=== PATIENT | male | born 1990 | race Caucasian/White ===

== ENCOUNTER 2024-09-10 13:25 | Emergency (ER) | payer OTHER, SELFPAY ==
[2024-09-10 13:31] VITALS: BP 122/92
--- NOTE | 2024-09-10 13:33 | ED.SKININJ ---
Addendum entered and electronically signed by Alexis Reis DO 09/27/24 15:16:
Laceration note.
1 cm scalp laceration closed with dermabond
Original Note:
HPI-Injury
<Rohan Bonilla PA-C - Last Filed: 09/11/24 06:58>
General
Chief Complaint: Head Injury
Time Seen by Provider: 09/10/24 14:23
<Alexis Reis DO - Last Filed: 09/10/24 14:55>
General
Source: patient
History of Present Illness-Injury
Initial Injury comments:
33-year-old male presents to the emergency room complaining of striking his head. Patient states he bent over to pull a stick from the bottom of his car. When he started he lost his balance on forward striking his head. He denies loss of
consciousness. He has pain in his forehead but denies a generalized headache. He has no neck pain. He denies any associated nausea or vomiting. He does not take any oral anticoagulants.
ED Provider Triage
<Rohan Bonilla PA-C - Last Filed: 09/11/24 06:58>
-
Patient seen by provider in Triage?: Seen in Triage
33-year-old male presents for fall. He bent over to take something out from underneath his car he stood up lost his balance and fell forward hitting his head on the pavement. He does not think he lost consciousness. He has a significant hematoma
noted to the forehead with laceration noted as well. Not anticoagulated. No neck pain. CT of the head was ordered
Phy Exam
<Alexis Reis DO - Last Filed: 09/10/24 14:55>
Physical Exam
Physical Exam:
General: Awake, Alert, Oriented X3. No acute distress.
Vitals: unremarkable
Head: Hematoma and abrasion noted on forehead.
Nose: Abrasion to nose. Septum is midline. No septal hematoma.
Eyes: Pupils equal, EOMI
Throat: Airway intact, no exudates
Neck: Trachea midline, no tenderness to midline palpation
Lungs: Clear and equal b/l
Heart: Regular rate, no murmurs
Neuro: Cranial nerves intact, muscle strength equal bilaterally, cerebellar exam normal
Skin: Warm, dry, no rash
Extremities: pulses equal b/l, no edema
Course
<Rohan Bonilla PA-C - Last Filed: 09/11/24 06:58>
Orders/Labs/Results
Orders:
Orders
09/10/24 13:35
Acetaminophen [Tylenol] 650 mg PO NOW STA
09/10/24 13:36
Acetaminophen [Tylenol] 650 mg .ROUTE .STK-MED ONE
09/10/24 14:44
Tetanus/Diphth/Acelpertussis [Adacel] 0.5 ml IM .ONCE ONE
Vital Signs
Initial and Last Documented VS:
Initial Vital Signs
Temp Pulse Resp BP Pulse Ox
98.1 F 86 18 122/92 97
09/10/24 13:31 09/10/24 13:31 09/10/24 13:31 09/10/24 13:31 09/10/24 13:31
Last Documented Vital Signs
Temp Pulse Resp BP Pulse Ox
98.1 F 80 18 139/89 96
09/10/24 13:31 09/10/24 15:16 09/10/24 15:16 09/10/24 15:16 09/10/24 15:16
Jessicalt;Alexis Reis DO - Last Filed: 09/10/24 14:55>
Orders/Labs/Results
Orders:
Orders
09/10/24 13:35
Acetaminophen [Tylenol] 650 mg PO NOW STA
09/10/24 13:36
Acetaminophen [Tylenol] 650 mg .ROUTE .STK-MED ONE
09/10/24 14:44
Tetanus/Diphth/Acelpertussis [Adacel] 0.5 ml IM .ONCE ONE
Vital Signs
Initial and Last Documented VS:
Initial Vital Signs
Temp Pulse Resp BP Pulse Ox
98.1 F 86 18 122/92 97
09/10/24 13:31 09/10/24 13:31 09/10/24 13:31 09/10/24 13:31 09/10/24 13:31
Last Documented Vital Signs
Temp Pulse Resp BP Pulse Ox
98.1 F 80 18 139/89 96
09/10/24 13:31 09/10/24 15:16 09/10/24 15:16 09/10/24 15:16 09/10/24 15:16
<Rohan Bonilla PA-C - Last Filed: 09/11/24 06:58>
*Critical Care Note
Total Time (30-74mins, 75-104mins- exclusive of procedures): Not Applicable
ED Attending Note
<Rohan Bonilla PA-C - Last Filed: 09/11/24 06:58>
-
Portions of this chart may have been created with voice recognition software.� Occasional wrong word or��sound alike� substitutions may have occurred due to the inherent limitations of voice recognition software.
Discharge Plan
Departure
Patient Disposition: Home (Routine Discharge)
Date of Disposition: 09/10/24
Time of Disposition: 14:52
Patient with high blood pressure during this ER visit?: No
Condition: Good
Discharge Problem:
Abrasion of forehead, Forehead laceration, Head injury
Instructions: Laceration Repair With Glue (DC), Minor Head Injury (DC)
Referrals:
Александр Watts MD [Family Provider] -
Interventions
Interventions:
*Risk Screen - Suicide Last Done: 09/10/24 13:31
*General Assessment Last Done: 09/10/24 13:31
*Neglect/Abuse Screening Last Done: 09/10/24 13:31
ED- Fall Risk Assessment Last Done: 09/10/24 15:17
*ED COVID-19 Vaccine History Last Done: 09/10/24 13:31
*Nursing Disposition Last Done: 09/10/24 15:17
ED- Neurological Assessment Last Done: 09/10/24 14:13
ED-Skin Assessment Last Done: 09/10/24 14:13
Discharge Date and Time
Discharge Date/Time: 09/10/24 15:17
Print Language: SAMI
[2024-09-10] MEDS: TYLENOL 650 MG PO (13:36)
[2024-09-10] MEDS: ADACEL 0.5 ML IM (15:09)
[2024-09-10 15:16] VITALS: BP 139/89
== END 2024-09-10 15:17 | disposition home or self-care (01) ==
LOC: EMR 13:25
PROVIDERS: EMERGENCY PHYSICIAN Emergency Medicine; FAMILY PHYSICIAN Family Medicine
DX: S09.90XA Unspecified injury of head, initial encounter (principal); S01.01XA Laceration without foreign body of scalp, initial encounter; W01.0XXA Fall on same level from slipping, tripping and stumbling without subsequent striking against object, initial encounter; Z23 Encounter for immunization
CPT/HCPCS: 99283; 12001; 90471; 90715